=== PATIENT | female | born 1960 | race Hispanic/Latino ===

== ENCOUNTER 2018-10-17 10:10 | Observation (INO) | payer OTHER ==
[~2018-10-17 10:10] MED LIST: PROP60CA2 PO
[2018-10-17 11:58] LABS: BASOPHILS % (AUTO) 0.5 % (0.0-5.0); EOSINOPHILS % (AUTO) 0.7 % (0.0-8.0); HEMATOCRIT 39.3 % (36-48); LYMPHOCYTES % (AUTO) 17.2 % (21.0-51.0); MEAN CORPUSCULAR HEMOGLOBIN 30.3 pg (27.0-33.0); MEAN CORPUSCULAR HGB CONC 33.5 g/dL (32.0-36.0); MEAN CORPUSCULAR VOLUME 90.2 fL (79-99); NEUTROPHILS % (AUTO) 75.6 % (40.0-77.0); PLATELET COUNT (AUTO) 268 K/uL (130-400); RED BLOOD CELL COUNT(AUTO) 4.36 MIL/uL (4.00-5.50); RED CELL DISTRIBUTION WIDTH 13.7 % (11.0-15.5); WHITE BLOOD COUNT (AUTO) 10.5 K/uL (4.8-10.8)
[2018-10-17 12:15] LABS: CREATININE 0.7 mg/dL (0.5-1.5); POTASSIUM 4.1 mmol/L (3.5-5.1)
[2018-10-17 12:20] LABS: ALBUMIN 3.8 g/dL (3.5-5.0); BILIRUBIN,DIRECT 0.1 mg/dL (0.0-0.3); BILIRUBIN,TOTAL 0.7 mg/dL (0.2-1.0); TOTAL PROTEIN, SERUM 7.8 g/dL (6.0-8.3)
[2018-10-17 12:25] LABS: B-TYPE NATRIURETIC PEPTIDE 5 pg/mL (0-100)
[2018-10-17 12:31] LABS: APPEARANCE,URINE Clear (CLEAR); BILIRUBIN,URINE Negative (NEGATIVE); COLOR,URINE Yellow (YELLOW); GLUCOSE, URINE (UA) Negative (NEGATIVE); KETONES,URINE Negative (NEGATIVE); LEUKOCYTE ESTERASE ,URINE Small (NEGATIVE); NITRATE,URINE Negative (NEGATIVE); OCCULT BLOOD,URINE Negative (NEGATIVE); PH,URINE 6.5 (5.0-8.0); PROTEIN,URINE Negative (NEGATIVE); UROBILINOGEN,URINE 0.2 mg/dL (0.2-1.0)
[2018-10-17 12:42] LABS: BACTERIA,URINE Few /HPF (None Seen); RBC,URINE 0-1 /HPF (0-1); SQUAMOUS EPITHELIAL CELL,UR Few /HPF (0-2)
[2018-10-17] MEDS ORDERED: SODIUM CHLORIDE 0.9% 1000ML 1,000 ML IV SCH (14:42)
[2018-10-17] MEDS ORDERED: HYDRALAZINE HCL 20 MG/ML VIAL IV PRN (14:45)
[2018-10-17] MEDS ORDERED: MORPHINE SULFATE 2 MG/ML 1ML SYG IV PRN (14:45)
[2018-10-17] MEDS ORDERED: ACETAMINOPHEN 325 MG TAB PO PRN (14:45)
[2018-10-17] MEDS ORDERED: ONDANSETRON HCL 4 MG/2 ML VIAL IV PRN (14:45)
[2018-10-17] MEDS ORDERED: DiphenhydrAMINE HCL 50 MG/ML VIAL IV PRN (14:45)
[2018-10-17] MEDS ORDERED: DiphenhydrAMINE HCL 50 MG/ML VIAL ONE (14:56)
[2018-10-17] MEDS ORDERED: METOCLOPRAMIDE 10 MG/2 ML VIAL ONE (14:56)
[2018-10-17] MEDS ORDERED: ASPIRIN 325 MG TABLET ONE (14:57)
[2018-10-17] MEDS ORDERED: ONDANSETRON HCL 4 MG/2 ML VIAL ONE (14:57)
[2018-10-17] MEDS ORDERED: KETOROLAC TROMETHAMINE 30MG/ML ONE (14:57)
[2018-10-17 15:15] LABS: HEMOGLOBIN A1C 5.9 % (4.0-6.0)
[2018-10-17 15:19] LABS: CRP QUANTITATIVE 8.4 mg/L (0.00-9.0); MAGNESIUM 1.9 mg/dL (1.80-2.40); PHOSPHORUS 3.6 mg/dL (2.5-4.9); THYROID STIMULATING HORMONE 1.1 uIU/mL (0.36-3.74)
[2018-10-18 04:50] VITALS: BP 108/77
[2018-10-18 06:13] LABS: CHOLESTEROL 148 mg/dL (<200); HDL CHOLESTEROL 53 mg/dL (35-85); LDL DIRECT 90 mg/dL (0-99); TRIGLYCERIDES 67 mg/dL (30-200)
[2018-10-18 08:00] VITALS: BP 125/67
[2018-10-18] MEDS: ACETAMINOPHEN 325 MG TAB PO PRN ×2 (08:13→18:53)
[2018-10-18] MEDS ORDERED: ENOXAPARIN SODIUM 40 MG/0.4 ML SYRINGE SQ SCH (09:00)
[2018-10-18] MEDS ORDERED: ASPIRIN 81MG TAB.CHEW PO SCH (09:00)
[2018-10-18 12:00] VITALS: BP 124/70
[2018-10-18] MEDS ORDERED: ACETAMINOPHEN-CODEINE 300/30MG TAB PO SCH (13:00)
[2018-10-18 16:00] VITALS: BP 130/77
--- NOTE | 2018-10-18 18:00 | NUR ---
JAILYN NOTE DCED IN OBS STATUS TO HOME , NO NEEDS EXPRESSED BY PT TO PRIMARY RN, NO TRIGGERS RECD BY HIM CLERK. Addendum: 10/18/18 at 1944 by GUEVARA BREWER RN CM Amended: Links added.
[2018-10-18 20:00] VITALS: BP 112/72
--- NOTE | 2018-10-18 21:55 | NUR ---
DISCHARGE PT'S 2D ECHO DONE AT SHIFT CHANGE NORMAL, DISCHARGED TO HOME PER ORDER. NO FURTHER COMPLAINTS OF ANY HEADACHES, NORMOTENSIVE, DISCHARGE INSTRUCTIONS GIVEN. PIV D/C, DRESSING APPLIED. TELEMETRY D/C. PT WAITED FOR A FRIEND TO PICK HER UP TO ASSIST WITH DISCHARGE. VS STABLE, NOT IN ANY FORM OF DISTRESS.
== END 2018-10-18 22:12 | disposition home or self-care (01) ==
LOC: EDH 10:10 → EDHIP 14:42 → 4AH 10-18 02:52
PROVIDERS: ADMIT Internal Medicine; ATTEND Internal Medicine
DX: R20.0 Anesthesia of skin (principal); I10 Essential (primary) hypertension; F41.9 Anxiety disorder, unspecified; Z87.442 Personal history of urinary calculi; Z82.0 Family history of epilepsy and other diseases of the nervous system; Z82.3 Family history of stroke; Z82.49 Family history of ischemic heart disease and other diseases of the circulatory system; Z82.5 Family history of asthma and other chronic lower respiratory diseases; Z83.3 Family history of diabetes mellitus; Z88.8 Allergy status to other drugs, medicaments and biological substances; Z79.899 Other long term (current) drug therapy
CPT/HCPCS: 36415 ×2; 70450; 70544; 70551; 80048; 80061; 80076; 81001; 82550; 82607; 83036 ×2; 83735; 83880; 84100; 84443; 84484; 85025; 86140; 93005; 93306; 93880; 96372; 99284; G0378 ×31; J1200; J1650; J1885; J2405; J2765

== ENCOUNTER 2020-09-22 06:02 | Day surgery (SDC) | payer BC ==
[2020-09-20 10:11] LABS: BASOPHILS % (AUTO) 0.7 % (0.0-5.0); EOSINOPHILS % (AUTO) 1.9 % (0.0-8.0); HEMATOCRIT 41.4 % (36-48); LYMPHOCYTES % (AUTO) 28.2 % (21.0-51.0); MEAN CORPUSCULAR HEMOGLOBIN 29.5 pg (27.0-33.0); MEAN CORPUSCULAR HGB CONC 31.6 g/dL (32.0-36.0); MEAN CORPUSCULAR VOLUME 93.2 fL (79-99); MONOCYTES % (AUTO) 6.8 % (3.0-13.0); NEUTROPHILS % (AUTO) 61.9 % (40.0-77.0); PLATELET COUNT (AUTO) 316 K/uL (130-400); RED BLOOD CELL COUNT(AUTO) 4.44 MIL/uL (4.00-5.50); RED CELL DISTRIBUTION WIDTH 13.4 % (11.0-15.5); WHITE BLOOD COUNT (AUTO) 8.2 K/uL (4.8-10.8)
[2020-09-20 10:18] LABS: CREATININE 0.8 mg/dL (0.5-1.5); POTASSIUM 3.9 mmol/L (3.5-5.1)
[2020-09-21 11:18] VITALS: BP 160/77
[~2020-09-22] VITALS: Ht 162.6 cm; Wt 94.4 kg
[2020-09-22] VITALS (20 sets, daily range): BP systolic 107–159; BP diastolic 44–89
[~2020-09-22 06:02] MED LIST changes: +BIOT25008 PO; +BUDE10.2 IH; +DULO60CA64 PO; +LOSA25TA41 PO; +MONT-39 PO; -PROP60CA2 PO; +[UNRECOGNIZED DRUG - OTHER] PO; +turmeric/ginger
[2020-09-22] MEDS ORDERED: EPINEPHRINE 1 MG/ML 30ML VIAL IJ ONE (07:49)
[2020-09-22] MEDS: CEFAZOLIN SODIUM 1 GM VIAL IVP SCH ×2 (08:00→10:25)
[2020-09-22] MEDS ORDERED: LACTATED RINGERS 1000ML 1,000 ML IV ONE (08:37)
[2020-09-22] MEDS ORDERED: LIDOCAINE PF 100MG/5ML (2%) SYRINGE 5ML ONE (09:26)
[2020-09-22] MEDS ORDERED: SUCCINYLCHOLINE CHLORIDE 20 MG/ML 10 ML VIAL ONE (09:26)
[2020-09-22] MEDS ORDERED: PROPOFOL 10 MG/ML 20ML VIAL IV ONE (09:26)
[2020-09-22] MEDS ORDERED: GLYCOPYRROLATE 1 MG/5 ML SYRINGE ONE (09:26)
[2020-09-22] MEDS ORDERED: DEXAMETHASONE SOD PHOSPHATE 10MG/ML 1ML VIAL ONE (09:26)
[2020-09-22] MEDS ORDERED: MIDAZOLAM HCL 1 MG/ML 2ML VIAL ONE (09:26)
[2020-09-22] MEDS ORDERED: NEOSTIGMINE 5MG/5ML SYR IV ONE (09:27)
[2020-09-22] MEDS ORDERED: FENTANYL CITRATE PF 50 MCG/1 ML 2ML VIAL ONE ×2 (09:27→10:46)
[2020-09-22] MEDS ORDERED: ROCURONIUM 10MG/1ML SYR 10 MG/ML ML ONE (09:27)
[2020-09-22] MEDS ORDERED: ONDANSETRON 4MG INJ ONE (09:27)
[2020-09-22] MEDS ORDERED: ROPIVACAINE 0.5% 5MG/ML 30ML IJ ONE (09:29)
[2020-09-22] MEDS ORDERED: EPHEDRINE SULFATE 50 MG/ML AMPULE ONE (10:38)
[2020-09-22] MEDS ORDERED: PHENYLEPHRINE HCL 10 MG/ML 1ML VIAL IV ONE (12:42)
[2020-09-22] MEDS ORDERED: CEPH500B PO (12:44)
[2020-09-22] MEDS ORDERED: IBUP-2071 PO (12:44)
[2020-09-22] MEDS ORDERED: HYDR-4060 PO (12:44)
[2020-09-22] MEDS ORDERED: ACETAMINOPHEN 500 MG TABLET ONE (14:15)
[2020-09-22] MEDS ORDERED: ACETAMINOPHEN 500 MG TABLET PO ONE (16:15)
== END 2020-09-22 15:45 | disposition home or self-care (01) ==
LOC: DAH 06:02
PROVIDERS: ATTEND Orthopaedic Surgery
DX: M75.111 Incomplete rotator cuff tear or rupture of right shoulder, not specified as traumatic (principal); Z20.822 Contact with and (suspected) exposure to COVID-19; M19.011 Primary osteoarthritis, right shoulder; D17.79 Benign lipomatous neoplasm of other sites; G89.29 Other chronic pain; M75.41 Impingement syndrome of right shoulder; E66.01 Morbid (severe) obesity due to excess calories; M25.511 Pain in right shoulder; I10 Essential (primary) hypertension; F41.9 Anxiety disorder, unspecified; Z83.3 Family history of diabetes mellitus; Z82.49 Family history of ischemic heart disease and other diseases of the circulatory system; Z79.899 Other long term (current) drug therapy; Z98.890 Other specified postprocedural states; Z72.89 Other problems related to lifestyle; Z88.3 Allergy status to other anti-infective agents
CPT/HCPCS: 23076; 29824; 29826; 29827; 36415; 64415; 76942; 80048; 85025; A4215; A4221; A4222; A4223; A4565; A4600; A4649 ×5; A4663; A4930; A5120; A6204; C1713 ×2; C9803; G0168; J0171; J0330; J0690; J1100; J2001; J2250; J2370; J2405; J2704; J2710; J2795; J3010 ×2; J3490 ×2; J7030; J7120; U0003

== ENCOUNTER 2021-07-03 10:39 | Emergency (ER) | payer BC ==
[~2021-07-03] VITALS: Ht 160 cm; Wt 91.2 kg
[~2021-07-03 10:39] MED LIST changes: +CEPH500B PO; +HYDR-4060 PO; +IBUP-2071 PO
[2021-07-03] MEDS ORDERED: KETOROLAC 15MG/ML VIAL (15MG/ML) IM SCH (12:00)
[2021-07-03] MEDS ORDERED: HYDROCODONE/ACETAMINOPHEN 5/325 MG TAB PO SCH (12:00)
[2021-07-03 12:06] LABS: BASOPHILS % (AUTO) 0.7 % (0.0-5.0); HEMATOCRIT 37.2 % (36-48); LYMPHOCYTES % (AUTO) 31.2 % (21.0-51.0); MEAN CORPUSCULAR HGB CONC 32.5 g/dL (32.0-36.0); MEAN CORPUSCULAR VOLUME 92.3 fL (79-99); MONOCYTES % (AUTO) 8.6 % (3.0-13.0); NEUTROPHILS % (AUTO) 56.1 % (40.0-77.0); PLATELET COUNT (AUTO) 267 K/uL (130-400); RED BLOOD CELL COUNT(AUTO) 4.03 MIL/uL (4.00-5.50); RED CELL DISTRIBUTION WIDTH 13.5 % (11.0-15.5); WHITE BLOOD COUNT (AUTO) 8.4 K/uL (4.8-10.8)
[2021-07-03 12:23] LABS: CREATININE 0.7 mg/dL (0.5-1.5); POTASSIUM 3.8 mmol/L (3.5-5.1)
[2021-07-03 12:28] LABS: ALBUMIN 3.4 g/dL (3.5-5.0); BILIRUBIN,TOTAL 0.5 mg/dL (0.2-1.0); TOTAL PROTEIN, SERUM 7.2 g/dL (6.0-8.3)
[2021-07-03 12:35] LABS: INR 0.94 (0.85-1.15); PROTHROMBIN TIME 10.3 SEC (9.6-11.6)
[2021-07-03] MEDS ORDERED: IBUP-2070 PO (13:38)
[2021-07-03] MEDS ORDERED: ACET1TAB25 PO (13:38)
[2021-07-03 14:06] VITALS: BP 145/69
== END 2021-07-03 14:00 | disposition home or self-care (01) ==
LOC: EDH 10:39
DX: M25.561 Pain in right knee (principal); M79.10 Myalgia, unspecified site; I10 Essential (primary) hypertension; G43.909 Migraine, unspecified, not intractable, without status migrainosus; F41.9 Anxiety disorder, unspecified; F32.A Depression, unspecified; Z91.041 Radiographic dye allergy status; Z79.1 Long term (current) use of non-steroidal anti-inflammatories (NSAID); Z79.51 Long term (current) use of inhaled steroids; Z79.899 Other long term (current) drug therapy; Z88.8 Allergy status to other drugs, medicaments and biological substances
CPT/HCPCS: 36415; 73562; 80053; 85025; 85610; 93971; 96372; 99284; J1885